=== PATIENT | male | born 1980 | race Caucasian/White ===

== ENCOUNTER 2017-02-01 15:20 | Emergency (ER) | payer OTHER ==
[~2017-02-01] VITALS: Ht 177.8 cm; Wt 108.9 kg
--- NOTE | ~2017-02-01 | CR141 ---
[facility] A Service of [facility] & [facility] RADIOLOGY TEXT RESULTS PATIENT: ZOILA HALLMAN LOCATION: [facility] : 76 UNIT #: [id number] AGE: [address]: Jesus Ramirez SEX: M ORDER DR: [id number] [facility] [address] [place], [place] [address] [id number] MR#: [id number] Acc #: [id number] NAME: ZOILA HALLMAN. : 1980 SEX: M STUDY DATE/TIME: 02/01/2017 18:20 UNIT: JORDY ROOM: STUDY DESCRIPTION: CR Hand Min 3 Views Lt Attending Physician: Jesus Ramirez R.N. Ordering Physician: Jesus Ramirez R.N. Primary Care Physician: Paramjit Cox M.D. MEDICAL IMAGING REPORT This report is preliminary unless electronic signature is present EXAM Three views left hand INDICATION Pain and swelling after a fall on February 01, 2017. FINDINGS This patient has an obliquely oriented fracture involving the distal shaft of the index finger metacarpal. It does not appear to extend to the articular surface. It does appear to be mildly angulated. There is overlying soft tissue swelling at the metacarpal head. No other fractures are identified. IMPRESSION Obliquely oriented fracture involving the distal shaft of the index finger metacarpal extending onto the metacarpal head without definite involvement of the articular surface. No other fractures are seen. Dictated by... Chrissie Gabriel M.D. THIS IS AN ELECTRONICALLY VERIFIED REPORT Chrissie Gabriel M.D. at 02/02/2017 5:46 PM AFF/april TD: 02/02/2017 11:09 JOB #: [id number] MEDICAL IMAGING REPORT Page 1 of 1 COPY
--- NOTE | ~2017-02-01 | CR278 ---
[facility] A Service of [facility] & [facility] RADIOLOGY TEXT RESULTS PATIENT: ZOILA HALLMAN LOCATION: [facility] : 76 UNIT #: [id number] AGE: [address]: Jesus Ramirez SEX: M ORDER DR: [id number] [facility] [address] [place], [place] [address] [id number] MR#: [id number] Acc #: [id number] NAME: ZOILA HALLMAN. : 1980 SEX: M STUDY DATE/TIME: 02/01/2017 18:21 UNIT: [facility] ROOM: STUDY DESCRIPTION: CR Wrist 2 View Lt Attending Physician: Jesus Ramirez R.N. Ordering Physician: Jesus Ramirez R.N. Primary Care Physician: Paramjit Cox M.D. MEDICAL IMAGING REPORT This report is preliminary unless electronic signature is present EXAM Left wrist series HISTORY Trauma. Fall. Pain, swelling. Happened 02/01/2017. FINDINGS AP, lateral and oblique radiographs of the left wrist are presented. There is an oblique fracture at the junction of the shaft and head of the second metacarpal bone. Please see hand series for further assessment. On these images, the metacarpal fracture fragments are not significantly distracted or displaced. I see no definite intraarticular extension. The bones of the wrist show no fracture or traumatic malalignment. The joint spaces are intact. There is no soft tissue defect, subcutaneous air or radiodense foreign body. There is soft tissue swelling dorsal aspect of the hand. Dictated by... Connor Ashley M.D. THIS IS AN ELECTRONICALLY VERIFIED REPORT Connor Ashley M.D. at 02/02/2017 5:54 PM CESARIO/april TD: 02/02/2017 11:05 JOB #: [id number] MEDICAL IMAGING REPORT Page 1 of 1 COPY
[~2017-02-01 15:20] MED LIST: BACTRIM DS TABL1 TA1 PO; NO MEDICATIONS; TRAMADOL HCL50 M1 PO
== END 2017-02-01 19:24 | disposition home or self-care (01) ==
LOC: CFTX 15:20 → CED 15:20 → CFTX 18:19
DX: S62.321A Displaced fracture of shaft of second metacarpal bone, left hand, initial encounter for closed fracture (principal); F17.210 Nicotine dependence, cigarettes, uncomplicated; I10 Essential (primary) hypertension; F31.9 Bipolar disorder, unspecified; Z88.6 Allergy status to analgesic agent; Z79.899 Other long term (current) drug therapy; W01.0XXA Fall on same level from slipping, tripping and stumbling without subsequent striking against object, initial encounter; Y92.009 Unspecified place in unspecified non-institutional (private) residence as the place of occurrence of the external cause
CPT/HCPCS: 29125; 73100; 73130; 99283